=== PATIENT | male | born 1965 | race Caucasian/White ===

== ENCOUNTER 2016-08-23 15:37 | Day surgery (SDC) | payer OTHER ==
--- NOTE | ~2016-08-23 | OP ---
Record Of Operation [facility] [address] [place]. [address] NAME: ERICA CALDERON : 63 STATUS : [facility]#: [id number] AGE: 51 ADM/REG DATE : 08/23/16 MR#: [id number] REPORT SERV DATE: 08/24/16 DICTATED BY: JOSSELYN AUSTIN DATE: 08/24/16 REPORT STATUS : Draft TRANSCRIBED BY: MODL DATE: 08/24/16 DATE OF PROCEDURE: 08/23/2016 SURGEON: Josselyn Austin MD. TITLE OF OPERATION: Cystourethroscopy with right ureteroscopy, and basket stone extraction, and placement of right ureteral stent. PREOPERATIVE DIAGNOSIS: Right ureteral stone. POSTOPERATIVE DIAGNOSIS: Right ureteral stone. INDICATIONS: Mr. Calderon is a 51-year-old male, with a history of a 3 mm right UVJ stone. Although, he had an ultrasound which showed no hydronephrosis. I suspect the stone has been there for up to six months. He is not symptomatic. He is here for therapy. ANESTHESIA: General. COMPLICATIONS: None. IMPLANT: A 6 x 24 right ureteral stent with tether. SPECIMEN: Stones for analysis. NARRATIVE: The patient was brought to the operating room, identified by his wristband. General anesthesia was induced and Ancef was given for preoperative antibiotics. He was placed in dorsal lithotomy position, prepped and draped in sterile fashion. A rigid ureteroscope was placed into his urethra into his bladder. The right ureteral orifice was identified and cannulated with a Sensor wire. The rigid ureteroscope was then placed into the distal ureter and a 3 mm stone was encountered. It was grasped with a flexible grasper and removed from the ureter and the body. There were no other stones in the ureter. A Sensor wire was then placed back into the ureter up to the level of the renal pelvis under fluoroscopic guidance. A 6 x 24 ureteral stent was placed in standard fashion. The proximal coil was in the renal pelvis under fluoroscopic guidance. Distal coil was in the bladder under direct vision. A tether was left. The bladder was drained. The stent was taped to his penis. The patient was awoken from anesthesia and transferred to the recovery room in stable condition. He will come back on Friday for stent removal. ASHWINI/CECIL Josselyn Austin MD / [id number] Record Of Operation [facility] [address] [place] [address] NAME: ERICA CALDERON : 63 STATUS : [facility]#: [id number] AGE: 51 ADM/REG DATE : 08/23/16 MR#: [id number] REPORT SERV DATE: 08/24/16 DICTATED BY: JOSSELYN AUSTIN DATE: 08/24/16 REPORT STATUS : Draft TRANSCRIBED BY: CECIL DATE: 08/24/16 CC: Josselyn Austin MD
[~2016-08-23 15:37] MED LIST: *DENIES
[2016-08-23 16:57] LABS: HEMATOCRIT 49.5 % (40.0-51.0); HEMOGLOBIN 16.6 g/dL (13.6-17.8)
[2016-08-23 17:04] LABS: ASCORBIC ACID (UR NOT ORDER) NEG (NEG); BILIRUBIN, URINE NEGATIVE (NEG); KETONE, URINE NEGATIVE (NEG); LEUKOCYTE ESTERASE(NOT OR NEG (NEG); WBC (NOT ORDERED) (RFLEX) 3 (0-5)
[2016-08-28 23:10] LABS: SOURCE OF STONE Kidney (()); STONE COMPOSITION TWO DNR (())
== END 2016-08-23 20:36 | disposition home or self-care (01) ==
LOC: SDC 15:37
PROVIDERS: Urology
PROC: 0TC68ZZ Extirpation of Matter from Right Ureter, Via Natural or Artificial Opening Endoscopic (ICD-10-PCS; 2016-08-23)
PROC: 0T768DZ Dilation of Right Ureter with Intraluminal Device, Via Natural or Artificial Opening Endoscopic (ICD-10-PCS; principal; 2016-08-23 18:30)
DX: N20.1 Calculus of ureter (principal); E66.9 Obesity, unspecified
CPT/HCPCS: 74420; 81001; 82365; 85014; 85018; A9270-GY; C1758; C2617; J0690; J1885; J2250; J2405; J2710; J3010; Q9967